=== PATIENT | female | born 1995 | race Caucasian/White ===

== ENCOUNTER → 2017-06-06 | Outpatient (CLI) | payer SELFPAY ==
--- NOTE | 2017-06-06 16:03 | RADIOLOGY REPORT (SQ) ---
EXAM DESCRIPTION: U/S OB 14+ TRNABD 1GES W/O DOP COMPLETED DATE/TIME: 06/06/2017 2:52 pm REASON FOR STUDY: ENCTR FOR SUPERVISION OF OTHER NORMAL SECOND TRIMESTER (Z34.82) Z34.82 ENCOUNTER FOR SUPRVSN OF NORMAL , SECOND TRI COMPARISON: No previous this TECHNIQUE: Static and Dynamic grayscale imaging performed of gravid uterus using transabdominal appr oach. Additional selected color Doppler and spectral images recorded. All stored on PACS. LIMITATIONS: None. FINDINGS: EGA: 28 weeks 4 days REFUGIO: 08/25/2017 EFW: 1,224 grams PERCENTILE: 42nd percentile CLAUDIA: 9.3 cm PLACENTA: Posterior grade 1 PRESENTATION: Cephalic. ANATOMY: HEART RATE: 163 beats per minute. FOUR CHAMBER HEART: Visualized. THREE VESSEL CORD: No, 2 vessel cord CORD INSERTION: Visualized. KIDNEYS AND BLADDER: Visualized. Appear normal. STOMACH: Visualized. Appears normal. SPINE: Normal as visualized. BRAIN AND LATERAL VENTRICLES: Limited visualization OTHER: No other significant finding. MATERNAL ADNEXA: Maternal ovaries not visualized. CERVICAL LENGTH: 4.1 cm Closed. OTHER: No other significant finding. IMPRESSION: LIVING INTRAUTERINE . ESTIMATED GESTATIONAL AGE 28 weeks 4 days 2 vessel cord Trimester of : Third trimester - 28 weeks to delivery. TECHNICAL DOCUMENTATION: JOB ID: [id number] [employer]- All Rights Reserved
== END ==
LOC: RAD 13:31
PROVIDERS: ATTEND Nurse Practitioner Women's Health
DX: Z34.82 Encounter for supervision of other normal pregnancy, second trimester (principal)
CPT/HCPCS: 76805

== ENCOUNTER 2017-07-24 05:06 | Outpatient (CLI) | payer MEDICAID ==
--- NOTE | 2017-07-24 06:01 | Non Stress Test Report ---
Non Stress Test Datetime Report Generated by CPN: 07/24/2017 06:01 DEMOGRAPHIC Test Number: 1 EGA NST: 35.5 INDICATION Indication for Study: Ordered by Provider VITAL SIGNS Temperature - NST: 98.4 Pulse - NST: 80 RESP - NST: 14 NBPSYS NST: 108 NBPDIA NST: 60 URINE RESULTS Urine Protein, NST: Negative Urine Ketones - NST: Negative Urine Glucose - NST: Negative Urine Blood - NST: Negative MONITORING Monitor Explained: Monitor Explained; Test Explained; Patient Verbalized Understanding Time on Monitor: 07/24/2017 05:22 Time off Monitor: 07/24/2017 05:45 NST Duration: 23 NST INTERVENTIONS NST Interventions: PO Hydration Physician Notified NST: Dr. Pitt BABY A: [id number] BABY A Movement : Present Contraction Frequency : x1 FHR Baseline : 135 Accelerations : 15X15 Decelerations : None Variability : Moderate 6-25bpm NST Review: Meets Criteria for Reactive NST NST Review and Verified By : B. Ring RN NST Results: Reactive NST REPORT Report Trigger: Send Report
[2017-07-24 06:25] LABS: APPEARANCE,URINE CLEAR; BILIRUBIN,URINE NEGATIVE (NEGATIVE); GLUCOSE, URINE NEGATIVE (NEGATIVE); KETONES,URINE NEGATIVE (NEGATIVE); LEUKOCYTE ESTERASE,URINE NEGATIVE (NEGATIVE); NITRITE,URINE NEGATIVE (NEGATIVE); PROTEIN,URINE NEGATIVE (NEGATIVE); URINE SPECIFIC GRAVITY 1.005; UROBILINOGEN,URINE NEGATIVE mg/dL (<2.0)
[2017-07-24 06:39] LABS: URINE BARBITURATES SCREEN NEGATIVE; URINE METHADONE SCREEN NEGATIVE; URINE OPIATES LOW NEGATIVE; URINE PHENCYCLIDINE SCREEN NEGATIVE
[2017-07-24 06:40] LABS: RBC,URINE RARE /HPF; WBC,URINE RARE /HPF
[2017-07-24 06:41] LABS: BACTERIA,URINE 1+ /HPF
== END 2017-07-24 05:53 | disposition home or self-care (01) ==
LOC: LC 05:06
PROVIDERS: ATTEND Student in an Organized Health Care Education/Training Program
PROC: 4A1HXCZ Monitoring of Products of Conception, Cardiac Rate, External Approach (ICD-10-PCS; principal; 2017-07-24)
DX: O26.893 Other specified pregnancy related conditions, third trimester (principal); R10.2 Pelvic and perineal pain; R20.0 Anesthesia of skin; R51 Headache; Z3A.35 35 weeks gestation of pregnancy
CPT/HCPCS: 59025; 80307; 81001

== ENCOUNTER 2017-07-24 06:01 | Emergency (ER) | payer MEDICAID ==
[2017-07-24 06:09] VITALS: BP 118/65
== END 2017-07-24 06:20 | disposition left against medical advice (07) ==
LOC: ER 06:01
DX: Z53.21 Procedure and treatment not carried out due to patient leaving prior to being seen by health care provider (principal)

== ENCOUNTER 2017-08-11 18:26 | Outpatient (CLI) | payer MEDICAID ==
[2017-08-11 20:15] LABS: APPEARANCE,URINE SLIGHTLY-CLOUDY; BILIRUBIN,URINE NEGATIVE (NEGATIVE); GLUCOSE, URINE NEGATIVE (NEGATIVE); KETONES,URINE 20 mg/dL (NEGATIVE); LEUKOCYTE ESTERASE,URINE NEGATIVE (NEGATIVE); NITRITE,URINE NEGATIVE (NEGATIVE); PROTEIN,URINE 30 mg/dL (NEGATIVE); URINE SPECIFIC GRAVITY 1.019
[2017-08-11 20:46] LABS: URINE BARBITURATES SCREEN NEGATIVE; URINE METHADONE SCREEN NEGATIVE; URINE OPIATES LOW NEGATIVE; URINE PHENCYCLIDINE SCREEN NEGATIVE
== END 2017-08-11 21:01 | disposition home or self-care (01) ==
LOC: LC 18:26
PROVIDERS: ATTEND Obstetrics & Gynecology
PROC: 4A1HXCZ Monitoring of Products of Conception, Cardiac Rate, External Approach (ICD-10-PCS; principal; 2017-08-11)
DX: O47.1 False labor at or after 37 completed weeks of gestation (principal); Z3A.38 38 weeks gestation of pregnancy
CPT/HCPCS: 80307; 81005; 87086

== ENCOUNTER 2018-01-30 06:30 | Emergency (ER) | payer MEDICAID ==
[2018-01-30 08:02] LABS: APPEARANCE,URINE SLIGHTLY-CLOUDY; BILIRUBIN,URINE NEGATIVE (NEGATIVE); COLOR,URINE STRAW; GLUCOSE, URINE NEGATIVE (NEGATIVE); KETONES,URINE NEGATIVE (NEGATIVE); LEUKOCYTE ESTERASE,URINE LARGE (NEGATIVE); NITRITE,URINE NEGATIVE (NEGATIVE); PROTEIN,URINE NEGATIVE (NEGATIVE); URINE SPECIFIC GRAVITY 1.006; UROBILINOGEN,URINE NEGATIVE mg/dL (<2.0)
--- NOTE | 2018-01-30 08:17 | ER Document Report ---
ED GI/ - General Chief Complaint: Urinary Problem Stated Complaint: POSSIBLE UTI Time Seen by Provider: 01/30/18 07:38 Mode of Arrival: Ambulatory Information source: Patient Notes: Patient is a 22-year-old female who presents to the ER today for burning with urination 3 days. Patient denies any belly pain or back pain, fevers or chills at home. Patient states that she came in today because she saw blood in her urine this morning. TRAVEL OUTSIDE OF THE [place] IN LAST 30 DAYS: No - Related Data Allergies/Adverse Reactions: acetaminophen [From Vicodin] Adverse Reaction (Verified 07/24/17 06:02) hydrocodone bitartrate [From Vicodin] Adverse Reaction (Verified 07/24/17 06:02) ketorolac tromethamine [From Toradol] Adverse Reaction (Verified 07/24/17 06:02) monostat Allergy (Uncoded 01/30/18 06:33) Past Medical History - General Information source: Patient - Social History Smoking Status: Never Smoker Family History: Reviewed & Not Pertinent - Past Medical History Cardiac Medical History: Denies: Hx Heart Attack, Hx Hypertension Pulmonary Medical History: Denies: Hx Asthma, Hx Bronchitis, Hx COPD, Hx Pneumonia Neurological Medical History: Denies: Hx Seizures Renal/ Medical History: Denies: Hx Peritoneal Dialysis Musculoskeltal Medical History: Denies Hx Arthritis Infectious Medical History: Reports: Hx MRSA Past Surgical History: Reports: Hx Section, Hx Herniorrhaphy - Immunizations Immunizations up to date: Yes Hx Diphtheria, Pertussis, Tetanus Vaccination: Yes Review of Systems - Review of Systems Constitutional: No symptoms reported EENT: No symptoms reported Cardiovascular: No symptoms reported Respiratory: No symptoms reported Gastrointestinal: No symptoms reported Genitourinary: See HPI Female Genitourinary: No symptoms reported Musculoskeletal: No symptoms reported Skin: No symptoms reported Hematologic/Lymphatic: No symptoms reported Neurological/Psychological: No symptoms reported Physical Exam - Vital signs Vitals: Temp Pulse Resp BP Pulse Ox 97.7 F 67 18 126/79 H 99 01/30/18 06:35 01/30/18 06:35 01/30/18 06:35 01/30/18 06:35 01/30/18 06:35 - Notes Notes: PHYSICAL EXAMINATION: GENERAL: Well-appearing and in no acute distress. HEAD: Atraumatic, normocephalic. EYES: Pupils equal round and reactive to light, extraocular movements intact, sclera anicteric, conjunctiva are normal. NECK: Normal range of motion, supple without lymphadenopathy LUNGS: CTAB and equal. No wheezes rales or rhonchi. HEART: Regular rate and rhythm without murmurs ABDOMEN: Soft, suprapubic tenderness. No guarding, no rebound BACK: no vertebral tenderness, normal ROM GI/: no CVA tenderness EXTREMITIES: Normal range of motion, no pitting edema. No cyanosis. NEUROLOGICAL: Cranial nerves grossly intact. Normal sensory/motor exams. PSYCH: Normal mood, normal affect. SKIN: Warm, Dry, normal turgor, no rashes or lesions noted Course - Re-evaluation Re-evalutation: 01/30/18 09:44 Patient positive for leukocytes with 105 white blood cells on urine and blood in the urinalysis. Patient started on Keflex, given Pyridium prescription. 01/30/18 09:44 negative today. - Vital Signs Vital signs: Temp Pulse Resp BP Pulse Ox 97.7 F 67 18 126/79 H 99 01/30/18 06:35 01/30/18 06:35 01/30/18 06:35 01/30/18 06:35 01/30/18 06:35 - Laboratory Laboratory results interpreted by me: 01/30/18 07:45 Urine Blood MODERATE H Ur Leukocyte Esterase LARGE H Discharge - Discharge Clinical Impression: UTI (urinary tract infection) Qualifiers: Urinary tract infection type: site unspecified Hematuria presence: with hematuria Qualified Code(s): N39.0 - Urinary tract infection, site not specified Condition: Stable Disposition: HOME, SELF-CARE Instructions: Cephalexin ([facility]), Urinary Tract Infection ([facility]) Additional Instructions: Return immediately for any new or worsening symptoms. Follow up with primary care provider, call tomorrow to make followup appointment. Please drink plenty of water. Prescriptions: Cephalexin Monohydrate [Keflex 500 mg Capsule] 500 mg PO BID 7 Days #14 capsule Phenazopyridine HCl [Pyridium 200 mg Tablet] 200 mg PO TID #15 tablet Forms: Return to Work
[2018-01-30 10:06] VITALS: BP 132/78
== END 2018-01-30 09:20 | disposition home or self-care (01) ==
LOC: ER 06:30
DX: N39.0 Urinary tract infection, site not specified (principal); Z88.6 Allergy status to analgesic agent; Z86.14 Personal history of Methicillin resistant Staphylococcus aureus infection
CPT/HCPCS: 81001; 81025; 99283

== ENCOUNTER 2018-03-12 09:14 | Emergency (ER) | payer MEDICAID ==
[2018-03-12 09:20] VITALS: BP 125/82
--- NOTE | 2018-03-12 09:47 | ER Document Report ---
HPI - HPI Pain Level: 3 Notes: Patient is a 22-year-old female no significant past medical history presents to the ED complaining of a red painful lesion area to her vaginal area x2 days. Patient states that she was told by her boyfriend that he has herpes and that she should get it looked at. Patient denies any previous history of STDs or STI 's. Patient states that she does shave in that area and has been using a dull razor recently. She has not noticed any abscess or purulent discharge. She has no vaginal discharge, odor, or bleeding. She has no other concern of any other STD or STI at this time. No other concerns or complaints. Denies any headache, fever, URI, sore throat, chest pain, palpitations, syncope, cough, shortness of breath, wheeze, dyspnea, abdominal pain, nausea/vomiting/diarrhea, urinary retention, dysuria, hematuria. - ROS Systems Reviewed and Negative: Yes All other systems reviewed and negative - REPRODUCTIVE Reproductive: DENIES: : Past Medical History - Social History Smoking Status: Never Smoker Family History: Reviewed & Not Pertinent - Past Medical History Cardiac Medical History: Denies: Hx Heart Attack, Hx Hypertension Pulmonary Medical History: Denies: Hx Asthma, Hx Bronchitis, Hx COPD, Hx Pneumonia Neurological Medical History: Denies: Hx Seizures Renal/ Medical History: Denies: Hx Peritoneal Dialysis Musculoskeletal Medical History: Denies Hx Arthritis Infectious Medical History: Reports: Hx MRSA Past Surgical History: Reports: Hx Section, Hx Herniorrhaphy - Immunizations Immunizations up to date: Yes Hx Diphtheria, Pertussis, Tetanus Vaccination: Yes Vertical Provider Document - CONSTITUTIONAL Agree With Documented VS: Yes Notes: PHYSICAL EXAMINATION: accompanied by female nurserenetta. GENERAL: Well-appearing, well-nourished and in no acute distress. LUNGS: Breath sounds clear to auscultation bilaterally and equal. No wheezes rales or rhonchi. HEART: Regular rate and rhythm without murmurs, rubs, gallops. ABDOMEN: Soft, nontender, nondistended abdomen. No guarding, no rebound. No masses appreciated. Normal bowel sounds present. No CVA tenderness bilaterally. : pt declined complete pelvic or further std/sti testing. outer exam performed: there are 2-3 small red bumps (0.1cm) on erythemic base noted to the postero-inferior labial area that are minimally tender. No fluctuance, purulence, or vesicles noted. No streaks or induration. Musculoskeletal: FROM to passive/active. Strength 5+/5. Extremities: No cyanosis, clubbing, or edema b/l. Peripheral pulses 2+. Capillary refill less than 3 seconds. NEUROLOGICAL: Normal speech, normal gait. PSYCH: Normal mood, normal affect. SKIN: see above. Warm, Dry, normal turgor, no rashes or lesions noted. - INFECTION CONTROL TRAVEL OUTSIDE OF THE [place] IN LAST 30 DAYS: No Course - Re-evaluation Re-evalutation: 03/12/18 09:59 Patient is an afebrile, well-hydrated, 22-year-old female who presents to the ED with lesions to her inferior labial area, suspect possible herpes. Vitals are acceptable. PE is otherwise unremarkable. Patient declined complete pelvic and STD STI testing. She is tolerating p.o. without difficulties and is nontoxic-appearing. I will be sending her home with prescription for acyclovir. Advised patient that she needs to be monitoring her symptoms and with any return have the fluid tested. Recheck with health department this week. Return to the ED with any worsening/concerning symptoms otherwise as reviewed in discharge. Patient is in agreement. - Vital Signs Vital signs: Temp Pulse Resp BP Pulse Ox 98.6 F 78 18 125/82 99 03/12/18 09:18 03/12/18 09:18 03/12/18 09:18 03/12/18 09:18 03/12/18 09:18 Discharge - Discharge Clinical Impression: Lesion of labia Condition: Stable Disposition: HOME, SELF-CARE Additional Instructions: Maintain fluids Proper hygenic technique Keep the skin clean Safe sexual practices with condoms everytime Tylenol/ibuprofen as needed Check in with the health department this week for further testing* F/u with your PCM in 3-5 days for a recheck Return to the ED with any development of CARLSON/fever, trouble with vision, eye redness, worsening pain, urethral discharge, urinary retention, blood in the urine, flank pain, abdominal pain, n/v, Chest Pain, shortness of breath, joint pains, trouble breathing, or any other worsening/concerning symptoms as needed otherwise. Prescriptions: Acyclovir [Acyclovir 400 mg Tablet] 400 mg PO TID #21 tablet Referrals: HEALTH DEPT,[facility] [NO LOCAL MD] - Follow up in 3-5 days
== END 2018-03-12 10:07 | disposition home or self-care (01) ==
LOC: ER 09:14
DX: R10.2 Pelvic and perineal pain (principal); Z20.2 Contact with and (suspected) exposure to infections with a predominantly sexual mode of transmission; Z86.14 Personal history of Methicillin resistant Staphylococcus aureus infection
CPT/HCPCS: 99283

== ENCOUNTER 2018-05-30 08:09 | Emergency (ER) | payer MEDICAID ==
[2018-05-30 08:59] LABS: APPEARANCE,URINE CLEAR; BILIRUBIN,URINE NEGATIVE (NEGATIVE); COLOR,URINE STRAW; GLUCOSE, URINE NEGATIVE (NEGATIVE); KETONES,URINE NEGATIVE (NEGATIVE); LEUKOCYTE ESTERASE,URINE NEGATIVE (NEGATIVE); NITRITE,URINE NEGATIVE (NEGATIVE); PROTEIN,URINE NEGATIVE (NEGATIVE); UROBILINOGEN,URINE NEGATIVE mg/dL (<2.0)
[2018-05-30 09:00] LABS: URINE SPECIFIC GRAVITY 1.009
[2018-05-30 10:00] LABS: EPITHELIALS (WET MOUNT) 3+ EPITHELIALS SEEN; T.VAGINALIS (WET MOUNT) NO TRICHOMONAS SEEN; WBCS (WET MOUNT) NO WBCS SEEN; YEAST (WET MOUNT) NO YEAST SEEN
[2018-05-30 10:22] LABS: CHLAM PCR NOT DETECTED (NOT DETECT); GON PCR NOT DETECTED (NOT DETECT)
[2018-05-30 10:35] VITALS: BP 113/81
--- NOTE | 2018-05-30 11:15 | ER Document Report ---
ED GI/ - General Chief Complaint: Vaginal Discharge Stated Complaint: STD CHECK Time Seen by Provider: 05/30/18 08:58 Mode of Arrival: Ambulatory Information source: Patient Notes: Patient is a 23-year-old female comes emergency room requesting STD check. When asked why patient states that she has been having weird symptoms for the past 2 weeks. She is been having random cramping and pain with with intercourse she is also had a smelly discharge she states it is thick white discharge. She also states she has been itching in the vaginal area. Denies any use of any antibiotics recently no other changes in her perfumes or soaps. She states she is monogamous with the same person but there are new events that have transpired which she will not inform us of. Her last menstrual period was 15 May and she has had a tubal ligation in the past. TRAVEL OUTSIDE OF THE [place] IN LAST 30 DAYS: No - HPI Patient complains to provider of: Pelvic pain. No: Dysuria, Flank pain, Onset: Other - 2 weeks ago Timing/Duration: Constant, Waxing and waning Quality of pain: No pain Severity at maximum: Mild Severity in ED: Mild Pain Level: 0 Location: Suprapubic Vaginal bleeding (Compared to normal period): None LMP: 20. Seventh Sexual history: Active, Unprotected intercourse Associated symptoms: Vaginal discharge Exacerbated by: Denies Relieved by: Denies Similar symptoms previously: No Recently seen / treated by doctor: No - Related Data Allergies/Adverse Reactions: acetaminophen [From Vicodin] Adverse Reaction (Verified 05/30/18 08:11) hydrocodone bitartrate [From Vicodin] Adverse Reaction (Verified 05/30/18 08:11) ketorolac tromethamine [From Toradol] Adverse Reaction (Verified 05/30/18 08:11) monostat Allergy (Uncoded 05/30/18 08:11) Past Medical History - General Information source: Patient - Social History Smoking Status: Never Smoker Cigarette use (# per day): No Chew tobacco use (# tins/day): No Smoking Education Provided: No Frequency of alcohol use: None Drug Abuse: None Family History: Reviewed & Not Pertinent Patient has suicidal ideation: No Patient has homicidal ideation: No - Past Medical History Cardiac Medical History: Denies: Hx Heart Attack, Hx Hypertension Pulmonary Medical History: Denies: Hx Asthma, Hx Bronchitis, Hx COPD, Hx Pneumonia Neurological Medical History: Denies: Hx Seizures Renal/ Medical History: Denies: Hx Peritoneal Dialysis Musculoskeletal Medical History: Denies Hx Arthritis Infectious Medical History: Reports: Hx MRSA Past Surgical History: Reports: Hx Section, Hx Herniorrhaphy, Hx Tubal Ligation - Immunizations Immunizations up to date: Yes Hx Diphtheria, Pertussis, Tetanus Vaccination: Yes Review of Systems - Review of Systems Constitutional: No symptoms reported EENT: No symptoms reported Cardiovascular: No symptoms reported Respiratory: No symptoms reported Gastrointestinal: No symptoms reported Genitourinary: Discharge Female Genitourinary: No symptoms reported Musculoskeletal: No symptoms reported Skin: No symptoms reported Hematologic/Lymphatic: No symptoms reported Neurological/Psychological: No symptoms reported -: Yes All other systems reviewed and negative Physical Exam - Vital signs Vitals: Temp Pulse Resp BP Pulse Ox 98.6 F 84 14 126/65 H 99 05/30/18 08:13 05/30/18 08:13 05/30/18 08:13 05/30/18 08:13 05/30/18 08:13 Interpretation: Normal - Notes Notes: Patient is a well-nourished well-developed 22-year-old female who is in no apparent distress. - General General appearance: Alert - HEENT Head: Normocephalic, Atraumatic Eyes: Normal - Respiratory Respiratory status: No respiratory distress Chest status: Nontender Breath sounds: Normal. No: Rales, Rhonchi, Stridor, Wheezing Chest palpation: Normal - Cardiovascular Rhythm: Regular Heart sounds: Normal auscultation Murmur: No - Abdominal Inspection: Normal Distension: No distension Bowel sounds: Normal Tenderness: Nontender Organomegaly: No organomegaly - Genitourinary External exam: Normal, Other - Pelvic examination shows normal appearing exterior genitalia. There is no erythema or signs of yeast infection. Further speculum exam shows normal vaginal moist dee. The cervix is deep and anteverted. There is no cervical motion tenderness. There is a thick white discharge surrounding the office but no other place. [id number] nonadhesive. The cervix is normal in appearance the office is closed there is no sign of any abnormalities. Bimanual was also negative for any CMT. There was no pain or discomfort with palpation of the ovaries. Speculum exam: Normal, Cervix closed, Vaginal discharge Bimanuel exam: Normal. No: Cervical motion tender - Back Back: Normal - Neurological Neuro grossly intact: Yes Cognition: Normal Orientation: AAOx4 Maria C Coma Scale Eye Opening: Spontaneous [place] Coma Scale Verbal: Oriented Maria C Coma Scale Motor: Obeys Commands [place] Coma Scale Total: 15 Speech: Normal - Skin Skin Temperature: Warm Skin Moisture: Dry Skin Color: Normal Course - Re-evaluation Re-evalutation: 05/30/18 11:18 Patient was hoping that we would find some abnormality in her STD workup. Her GC was negative this was by urine her urine was clean. The pelvic exam showed a white discharge but it had no smell to it and it was not adherent appears to be a normal variant. The wet prep was also negative for any type of clue cells. So at this time would send patient home with basically a good or negative I should say STD exam - Vital Signs Vital signs: Temp Pulse Resp BP Pulse Ox 98.8 F 84 16 113/81 100 05/30/18 10:33 05/30/18 08:13 05/30/18 10:33 05/30/18 10:33 05/30/18 10:33 Discharge - Discharge Clinical Impression: Pelvic pain, Screening examination for STD (sexually transmitted disease) Condition: Stable Disposition: HOME, SELF-CARE Instructions: Pelvic Pain ([facility]) Additional Instructions: At this time we have found no abnormalities in your STD workup. I highly recommend that she establish with a [facility] and discussed with them the matters and possibly get a Pap smear. Again we tested for gonorrhea chlamydia and clue cells for bacterial vaginosis we do not test for HIV out of the emergency room. If you are concerned about this you should go to the health department or to your primary care provider for instructions on how to do this. I am giving you the name of the [facility] party demonstrator you may contact your office to see if they can accommodate you. Referrals: FLORA CATALAN, DO [ACTIVE STAFF] - Follow up as needed
== END 2018-05-30 11:32 | disposition home or self-care (01) ==
LOC: ER 08:09 → EEVIPCON 08:09 → ER 11:32
DX: N89.8 Other specified noninflammatory disorders of vagina (principal); R10.2 Pelvic and perineal pain; Z20.2 Contact with and (suspected) exposure to infections with a predominantly sexual mode of transmission; Z88.6 Allergy status to analgesic agent; Z86.14 Personal history of Methicillin resistant Staphylococcus aureus infection; Z98.51 Tubal ligation status
CPT/HCPCS: 81001; 81025; 87210; 87491; 87591; 99283

== ENCOUNTER 2018-07-23 19:33 | Emergency (ER) | payer MEDICAID ==
--- NOTE | 2018-07-23 20:54 | RADIOLOGY REPORT (SQ) ---
EXAM DESCRIPTION: HAND RIGHT 3 VIEWS COMPLETED DATE/TIME: 07/23/2018 8:28 pm REASON FOR STUDY: Punched something-possible broken hand COMPARISON: None. EXAM PARAMETERS: NUMBER OF VIEWS: Three views. TECHNIQUE: AP, lateral and oblique radiographic images acquired of the right hand. LIMITATIONS: None. FINDINGS: MINERALIZATION: Normal. BONES: No acute fracture or dislocation. No worrisome bone lesions. JOINTS: No effusions. SOFT TISSUES: No soft tissue swelling. No foreign body. OTHER: No other significant finding. IMPRESSION: NEGATIVE STUDY OF THE RIGHT HAND. NO RADIOGRAPHIC EVIDENCE OF ACUTE INJURY. TECHNICAL DOCUMENTATION: JOB ID: [id number] [employer]- All Rights Reserved Reading location - IP/workstation name: [email or web address]
--- NOTE | 2018-07-23 22:20 | ER Document Report ---
HPI - HPI Patient complains to provider of: R hand/wrist pain Time Seen by Provider: 07/23/18 21:07 Onset: This morning Onset/Duration: Sudden Quality of pain: Throbbing Pain Level: 4 Associated Symptoms: None Exacerbated by: Movement Relieved by: Remaining still Similar symptoms previously: No Recently seen / treated by doctor: No - ROS ROS below otherwise negative: Yes Systems Reviewed and Negative: Yes All other systems reviewed and negative - REPRODUCTIVE Reproductive: DENIES: : Past Medical History - General Information source: Patient - Social History Smoking Status: Never Smoker Family History: Reviewed & Not Pertinent - Past Medical History Cardiac Medical History: Denies: Hx Heart Attack, Hx Hypertension Pulmonary Medical History: Denies: Hx Asthma, Hx Bronchitis, Hx COPD, Hx Pneumonia Neurological Medical History: Denies: Hx Seizures Renal/ Medical History: Denies: Hx Peritoneal Dialysis Musculoskeletal Medical History: Denies Hx Arthritis Infectious Medical History: Reports: Hx MRSA Past Surgical History: Reports: Hx Section, Hx Herniorrhaphy, Hx Tubal Ligation - Immunizations Immunizations up to date: Yes Hx Diphtheria, Pertussis, Tetanus Vaccination: Yes Vertical Provider Document - CONSTITUTIONAL Agree With Documented VS: Yes Exam Limitations: No Limitations - INFECTION CONTROL TRAVEL OUTSIDE OF THE [place] IN LAST 30 DAYS: No - HEENT HEENT: Atraumatic, Normocephalic - NECK Neck: Normal Inspection, Other - RESPIRATORY Respiratory: Breath Sounds Normal, No Respiratory Distress - CARDIOVASCULAR Cardiovascular: Regular Rate, Regular Rhythm - No edema - MUSCULOSKELETAL/EXTREMETIES Musculoskeletal/Extremeties: Tender - Exquisite tenderness to palpation right fifth metacarpal and pinky finger. Ecchymosis noted over dorsal aspect of fourth and fifth metacarpals. No snuffbox tenderness. Tenderness to palpation right medial wrist. No edema. X Ray shows no evidence of fracture. Sensation intact to light touch. Normal distal neurovascular exam. - NEURO Motor/Sensory: negative: Sensory Deficit Course - Vital Signs Vital signs: Temp Pulse Resp BP Pulse Ox 97.6 F 90 16 124/85 100 07/23/18 19:48 07/23/18 19:48 07/23/18 19:48 07/23/18 19:48 07/23/18 19:48 Discharge - Discharge Clinical Impression: Hand injury Qualifiers: Encounter type: initial encounter Laterality: right Qualified Code(s): S69.91XA - Unspecified injury of right wrist, hand and finger(s), initial encounter Condition: Good Disposition: HOME, SELF-CARE Additional Instructions: You were seen in the emergency department this evening for a right hand injury. No evidence of fracture on x-ray. The pain you are experiencing is most likely due to soft tissue injury and bony bruising. Make sure that you rest your hand you can ice your hand for 20 minutes at a time every couple of hours, keep the splint on it for the next 3-5 days, and if he noticed swelling elevate your right hand above the heart. If you notice that your hand starts to turn blue, becomes numb, or you develop severe pain out of proportion to what you are already experiencing please return to the emergency department. We are giving you information for orthopedics, but please follow-up with a primary doctor. If you do not have a primary doctor he can call the orthopedics clinic tomorrow and set up an appointment for follow-up.
[2018-07-23 23:29] VITALS: BP 127/89
== END 2018-07-23 22:30 | disposition home or self-care (01) ==
LOC: ER 19:33
DX: S69.91XA Unspecified injury of right wrist, hand and finger(s), initial encounter (principal); M25.531 Pain in right wrist; M79.641 Pain in right hand; I10 Essential (primary) hypertension; X58.XXXA Exposure to other specified factors, initial encounter
CPT/HCPCS: 99283; 73130; L3908

== ENCOUNTER 2018-10-01 10:03 | Emergency (ER) | payer SELFPAY ==
[2018-10-01 10:10] VITALS: BP 128/83
--- NOTE | 2018-10-01 10:45 | RADIOLOGY REPORT (SQ) ---
EXAM DESCRIPTION: WRIST RIGHT 3 VIEWS COMPLETED DATE/TIME: 10/01/2018 10:33 am REASON FOR STUDY: rt wrist pain COMPARISON: None. NUMBER OF VIEWS: Four views. TECHNIQUE: AP, lateral, oblique, and scaphoid radiographic images acquired of the right wrist. LIMITATIONS: None. FINDINGS: MINERALIZATION: Normal. BONES: No acute fracture or dislocation. No worrisome bone lesions. Normal alignment. SOFT TISSUES: No soft tissue swelling. No foreign body. OTHER: No other significant finding. IMPRESSION: NEGATIVE STUDY OF THE RIGHT WRIST. NO RADIOGRAPHIC EVIDENCE OF ACUTE INJURY. TECHNICAL DOCUMENTATION: JOB ID: [id number] [employer]- All Rights Reserved Reading location - IP/workstation name: [email or web address]
--- NOTE | 2018-10-01 11:08 | ER Document Report ---
HPI - HPI Time Seen by Provider: 10/01/18 10:21 Pain Level: 3 Notes: Patient is a 23-year-old female with no significant past medical history presents emergency department complaining of right wrist pain status post injury a week ago. Patient states that she was falling and had an injury to her right wrist. It was a fall on outstretched hand injury. Patient states that she has been doing conservative measures for the past week, but does continue to have pain in her wrist and difficulty with range of motion because of the pain. She has not noticed any other bruising. Denies any headache, fever, head injury, neck pain, URI, sore throat, chest pain, palpitations, syncope, cough, shortness of breath, wheeze, dyspnea, abdominal pain, nausea/vomiting/diarrhea, urinary retention, dysuria, hematuria, loss of control of bowel or bladder, numbness/tingling, muscle paralysis/weakness, or rash. - ROS Systems Reviewed and Negative: Yes All other systems reviewed and negative - CONSTITUTIONAL Constitutional: DENIES: Fever, Chills - EENT EENT: DENIES: Sore Throat, Ear Pain, Eye problems - NEURO Neurology: DENIES: Headache, Weakness, Vision blurred, Dizzinesss / Vertigo - CARDIOVASCULAR Cardiovascular: DENIES: Chest pain - RESPIRATORY Respiratory: DENIES: Trouble Breathing, Coughing - GASTROINTESTINAL Gastrointestinal: DENIES: Abdominal Pain, Black / Bloody Stools - URINARY Urinary: DENIES: Dysuria, Urgency, Frequency - REPRODUCTIVE Reproductive: DENIES: : - MUSCULOSKELETAL Musculoskeletal: REPORTS: Extremity pain - right wrist Past Medical History - Social History Smoking Status: Never Smoker Chew tobacco use (# tins/day): No Frequency of alcohol use: None Drug Abuse: None Family History: Reviewed & Not Pertinent Patient has suicidal ideation: No Patient has homicidal ideation: No - Past Medical History Cardiac Medical History: Denies: Hx Heart Attack, Hx Hypertension Pulmonary Medical History: Denies: Hx Asthma, Hx Bronchitis, Hx COPD, Hx Pneumonia Neurological Medical History: Denies: Hx Seizures Renal/ Medical History: Denies: Hx Peritoneal Dialysis Musculoskeletal Medical History: Denies Hx Arthritis Infectious Medical History: Reports: Hx MRSA Past Surgical History: Reports: Hx Abdominal Surgery - ventral hernia repair, Hx Section - x2, Hx Herniorrhaphy, Hx Tubal Ligation - Immunizations Immunizations up to date: Yes Hx Diphtheria, Pertussis, Tetanus Vaccination: Yes Vertical Provider Document - CONSTITUTIONAL Agree With Documented VS: Yes Notes: PHYSICAL EXAMINATION: GENERAL: Well-appearing, well-nourished and in no acute distress. LUNGS: Breath sounds clear to auscultation bilaterally and equal. No wheezes rales or rhonchi. HEART: Regular rate and rhythm without murmurs, rubs, gallops. Musculoskeletal: Rt wrist: No obvious erythema, ecchymosis, swelling, or deformity. + tenderness to the distal radius. No scaphoid tenderness. LROM to active due to pain, FROM to passive. Strength 5+/5. N/V intact distal. Extremities: No cyanosis, clubbing, or edema b/l. Peripheral pulses 2+. Capillary refill less than 3 seconds. NEUROLOGICAL: Normal speech, normal gait. Normal sensory, motor exams PSYCH: Normal mood, normal affect. SKIN: Warm, Dry, normal turgor, no rashes or lesions noted. - INFECTION CONTROL TRAVEL OUTSIDE OF THE [place] IN LAST 30 DAYS: No Course - Re-evaluation Re-evalutation: 10/01/18 11:08 Patient is an afebrile, well-hydrated, 23-year-old female who presents to the ED with rt wrist pain which I suspect to be a sprain versus strain. Vitals are acceptable without any significant tachycardia, tachypnea, or hypoxia. PE is otherwise unremarkable for any neurovascular compromise, obvious tendon/ligament rupture, obvious fracture/dislocation, septic joint. X-ray was unremarkable for any acute pathology. Cock-up provided today. Patient declined any Tylenol or ice. Patient is nontoxic-appearing. No other labs or imaging warranted at this time based on H&P. Conservative measures otherwise for symptoms. Recheck with your PCM in 3-5 days. Consider consult orthopedics. Return to the ED with any worsening/concerning symptoms otherwise as reviewed in discharge. Patient is in agreement. - Vital Signs Vital signs: Temp Pulse Resp BP Pulse Ox 98.4 F 88 16 128/83 H 100 10/01/18 10:08 10/01/18 10:08 10/01/18 10:08 10/01/18 10:10/01/18 10:08 Discharge - Discharge Clinical Impression: Right wrist pain Condition: Stable Disposition: HOME, SELF-CARE Additional Instructions: Rest, Ice, Compression, Elevation Use splint as directed Tylenol/ibuprofen as needed Light stretches daily Strength exercises as able Moist heat and massage may help F/u with your PCP in 3-5 days for a recheck Consider consult(s) with Orthopedics/physical therapy for ongoing/worsening symptoms Return to the ED with any worsening symptoms and/or development of fever, headache, chest pain, palpitations, syncope, shortness of breath, trouble breathing, abdominal pain, n/v/d, muscle weakness/paralysis, numbness/tingling, swelling, redness, or other worsening symptoms that are concerning to you. Forms: Elevated Blood Pressure Referrals: [facility] ([facility]) [Provider Group] - Follow up as needed
== END 2018-10-01 11:15 | disposition home or self-care (01) ==
LOC: ER 10:03
DX: M25.531 Pain in right wrist (principal); W19.XXXA Unspecified fall, initial encounter
CPT/HCPCS: 99283; 73110; L3908

== ENCOUNTER 2018-11-27 18:40 | Emergency (ER) | payer SELFPAY ==
[2018-11-27] MEDS ORDERED: ACETAMINOPHEN 325 MG TABLET PO ONE (21:07)
--- NOTE | 2018-11-27 21:28 | ER Document Report ---
HPI - HPI Patient complains to provider of: Sore throat Time Seen by Provider: 11/27/18 20:28 Pain Level: 3 Context: Patient is otherwise healthy 23-year-old female presents to the emergency department for sore throat and subjective fever for the last 2 days. Patient also admitting to generalized congestion. Patient states she noted a white spot in the right side of her mouth which concerned her which is why she presents to the emergency room. Patient denies any medical history, takes no medications on a daily basis, Allergies include Toradol, Vicodin, last menstrual period 11/12. - EENT EENT: REPORTS: Sore Throat - REPRODUCTIVE Reproductive: DENIES: : Past Medical History - General Information source: Patient - Social History Smoking Status: Unknown if Ever Smoked Family History: Reviewed & Not Pertinent Patient has suicidal ideation: No Patient has homicidal ideation: No - Past Medical History Cardiac Medical History: Denies: Hx Heart Attack, Hx Hypertension Pulmonary Medical History: Denies: Hx Asthma, Hx Bronchitis, Hx COPD, Hx Pneumonia Neurological Medical History: Denies: Hx Seizures Renal/ Medical History: Denies: Hx Peritoneal Dialysis Musculoskeletal Medical History: Denies Hx Arthritis Infectious Medical History: Reports: Hx MRSA Past Surgical History: Reports: Hx Abdominal Surgery - ventral hernia repair, Hx Section - x2, Hx Herniorrhaphy, Hx Tubal Ligation - Immunizations Immunizations up to date: Yes Hx Diphtheria, Pertussis, Tetanus Vaccination: Yes Vertical Provider Document - CONSTITUTIONAL Agree With Documented VS: Yes Notes: GENERAL: Alert, interacts well. No acute distress. HEAD: Normocephalic, atraumatic. EYES: Pupils equal, round, and reactive to light. Extraocular movements intact. ENT: Oral mucosa moist, tongue midline. Nares patent, TM's intact, nonerythemato us, nonbulging bilaterally. Pharynx minorly erythematous, it appears to be an aphthous ulcer noted to the mucous membranes on the right side of the patient's mouth. NECK: Full range of motion. Supple. Trachea midline. No lymphadenopathy appreciated LUNGS: Clear to auscultation bilaterally, no wheezes, rales, or rhonchi. No respiratory distress. HEART: Regular rate and rhythm. No murmur ABDOMEN: Soft, non-tender. Non-distended. Bowel sounds present in all 4 quadrants. EXTREMITIES: Moves all 4 extremities spontaneously. No edema, normal radial and dorsalis pedis pulses bilaterally. No cyanosis. BACK: no cervical, thoracic, lumbar midline tenderness. No saddle anesthesia, normal distal neurovascular exam. NEUROLOGICAL: Alert and oriented x3. Normal speech. cranial nerves II through XII grossly intact. PSYCH: Normal affect, normal mood. SKIN: Warm, dry, normal turgor. No rashes or lesions noted. - INFECTION CONTROL TRAVEL OUTSIDE OF THE [place] IN LAST 30 DAYS: No Course - Re-evaluation Re-evalutation: 11/27/18 21:26 Patient's rapid strep test was negative. Patient's physical exam is consistent with an aphthous ulcer, viral diagnosis. Discussed with patient symptomatic treatments and close follow-up with primary care provider. Patient stable for discharge. - Vital Signs Vital signs: Temp Pulse Resp BP Pulse Ox 98.4 F 98 16 121/72 97 11/27/18 19:36 11/27/18 19:36 11/27/18 19:36 11/27/18 19:36 11/27/18 19:36 Discharge - Discharge Clinical Impression: Aphthous ulcer, Sore throat Condition: Stable Disposition: HOME, SELF-CARE Instructions: Sore Throat ([facility]) Additional Instructions: As we discussed you have been seen and treated in the emergency department for an Apthous ulcer. These are typically caused by viral infections. Patient should continue to take [id number] Tylenol, use [id number] Cepacol throat lozenges. Please also make an appointment with your primary care provider for follow-up in the next 24 to 48 hours. Please return to the emergency room should you have any other concerning symptoms. Forms: Return to Work
[2018-11-27 21:33] VITALS: BP 121/80
== END 2018-11-27 21:33 | disposition home or self-care (01) ==
LOC: ER 18:40
DX: K12.0 Recurrent oral aphthae (principal); J02.9 Acute pharyngitis, unspecified; R68.89 Other general symptoms and signs; Z86.14 Personal history of Methicillin resistant Staphylococcus aureus infection; Z98.51 Tubal ligation status
CPT/HCPCS: 87070; 87880; 99283

== ENCOUNTER 2019-05-01 13:07 | Emergency (ER) | payer SELFPAY ==
[2019-05-01] MEDS ORDERED: DIPH/PERTUSS(ACELL)/TETANUS VAC/PF 0.5 ML SYR (>=10YO) IM ONE (14:22)
[2019-05-01] MEDS ORDERED: MUPIROCIN 2% OINTMENT 22 GM TP ONE (14:23)
[2019-05-01] MEDS ORDERED: OXYCODONE-ACETAMINOPHEN 5-325 MG TABLET PO ONE (14:24)
--- NOTE | 2019-05-01 14:29 | ER Document Report ---
HPI - HPI Patient complains to provider of: Hand burn Time Seen by Provider: 05/01/19 14:14 Onset: This afternoon - noon Onset/Duration: Persistent Quality of pain: Burning Pain Level: 5 Context: Patient states that she grabbed her currently and this afternoon burning her hand. Patient reports mild burn to the left third fourth and fifth fingers as well as the palmar surface. Patient is right-hand dominant. Associated Symptoms: Other - Left hand pain with burning Exacerbated by: Movement Relieved by: Denies Similar symptoms previously: No Recently seen / treated by doctor: No - ROS ROS below otherwise negative: Yes Systems Reviewed and Negative: Yes All other systems reviewed and negative - CONSTITUTIONAL Constitutional: DENIES: Fever, Chills - GASTROINTESTINAL Gastrointestinal: DENIES: Nausea - REPRODUCTIVE Reproductive: DENIES: : - MUSCULOSKELETAL Musculoskeletal: REPORTS: Extremity pain - DERM Skin Color: Erythema Skin Problems: Burn Past Medical History - General Information source: Patient - Social History Smoking Status: Never Smoker Frequency of alcohol use: None Drug Abuse: None Occupation: underwriting intern Lives with: Family Family History: Reviewed & Not Pertinent Patient has suicidal ideation: No Patient has homicidal ideation: No - Medical History Medical History: Negative - Past Medical History Cardiac Medical History: Neurological Medical History: Denies: Hx Seizures Renal/ Medical History: Denies: Hx Peritoneal Dialysis Musculoskeletal Medical History: Denies Hx Arthritis Infectious Medical History: Reports: Hx MRSA Past Surgical History: Reports: Hx Abdominal Surgery - ventral hernia repair, Hx Section - x2, Hx Herniorrhaphy, Hx Tubal Ligation - Immunizations Immunizations up to date: Yes Hx Diphtheria, Pertussis, Tetanus Vaccination: Yes Vertical Provider Document - CONSTITUTIONAL Agree With Documented VS: Yes Exam Limitations: No Limitations General Appearance: WD/WN, No Apparent Distress - INFECTION CONTROL TRAVEL OUTSIDE OF THE [place] IN LAST 30 DAYS: No - HEENT HEENT: Atraumatic, Normocephalic - NECK Neck: Normal Inspection - RESPIRATORY Respiratory: No Respiratory Distress - CARDIOVASCULAR Pulses: Normal: Radial - MUSCULOSKELETAL/EXTREMETIES Musculoskeletal/Extremeties: BUTCH YEAGER - NEURO Level of Consciousness: Awake, Alert, Appropriate Motor/Sensory: No Motor Deficit - DERM Integumentary: Warm, Dry Notes: Patient with a superficial burn to palmar surface of left third fourth and fifth fingertips. No blistering noted. Patient with burn to left hand thenar eminence that appears superficial to partial thickness. No blistering noted. Course - Vital Signs Vital signs: Temp Pulse Resp BP Pulse Ox 98.2 F 80 18 128/71 H 99 05/01/19 13:15 05/01/19 13:15 05/01/19 13:15 05/01/19 13:15 05/01/19 13:15 Discharge - Discharge Clinical Impression: Burn Condition: Stable Disposition: HOME, SELF-CARE Instructions: Gong ([facility]), Soap Cleansing ([facility]), Tetanus Immunization Given ([facility]) Additional Instructions: Return immediately for any new or worsening symptoms Followup with your primary care provider, call tomorrow to make a followup appointment Keep wound covered as it continues to heal Prescriptions: Mupirocin [Bactroban 2% Ointment 22 gm] 1 applic TP BID #22 gm Oxycodone HCl/Acetaminophen [Percocet 5-325 mg Tablet] 1 tab PO ASDIR PRN #6 tablet PRN Reason: Forms: Return to Work Referrals: [facility] [Provider Group] - Follow up as needed [facility] [Provider Group] - Follow up as needed
[2019-05-01 15:17] VITALS: BP 114/76
== END 2019-05-01 15:16 | disposition home or self-care (01) ==
LOC: ER 13:07
DX: T23.002A Burn of unspecified degree of left hand, unspecified site, initial encounter (principal); X08.8XXA Exposure to other specified smoke, fire and flames, initial encounter
CPT/HCPCS: 99283; 90471; 90715; J3490

== ENCOUNTER 2020-05-26 15:53 | Emergency (ER) | payer SELFPAY ==
--- NOTE | 2020-05-26 16:22 | ER Document Report ---
ED Medical Screen (RME) - General Chief Complaint: Headache Stated Complaint: VISON LOSE/MIGRAINE/NAUSEA/SHAKEY Time Seen by Provider: 05/26/20 16:11 Mode of Arrival: Ambulatory Information source: Patient Notes: 24-year-old female presented to ED for complaint of complete loss of vision in the left eye around noon. She states everything went white she became very shaky shaky with a severe headache. She states her vision has improved it is now blotchy and very blurry. She states she still has a severe headache. She does have a history of mitral valve prolapse pots disease and orthostatic intolerance. I did consult Dr. Rubio. He said to work it up as a stroke. I have ordered the stroke protocol at this time. I have greeted and performed a rapid initial assessment of this patient. A comprehensive ED assessment and evaluation of the patient, analysis of test results and completion of medical decision making process will be conducted by an additional ED providers. TRAVEL OUTSIDE OF THE [place] IN LAST 30 DAYS: No - Related Data Allergies/Adverse Reactions: hydrocodone bitartrate [From Vicodin] Adverse Reaction (Verified 05/26/20 16:09) ketorolac tromethamine [From Toradol] Adverse Reaction (Verified 05/26/20 16:09) monostat Allergy (Uncoded 05/26/20 16:09) Home Medications: no home meds Past Medical History - Social History Chew tobacco use (# tins/day): No Frequency of alcohol use: Occasional Drug Abuse: None - Past Medical History Cardiac Medical History: Denies: Hx Heart Attack, Hx Hypertension Pulmonary Medical History: Denies: Hx Asthma, Hx Bronchitis, Hx COPD, Hx Pneumonia Neurological Medical History: Denies: Hx Seizures Renal/ Medical History: Denies: Hx Peritoneal Dialysis Musculoskeltal Medical History: Denies Hx Arthritis Infectious Medical History: Reports: Hx MRSA Past Surgical History: Reports: Hx Abdominal Surgery - ventral hernia repair, Hx Section - x2, Hx Herniorrhaphy, Hx Tubal Ligation - Immunizations Immunizations up to date: Yes Hx Diphtheria, Pertussis, Tetanus Vaccination: Yes Physical Exam - Vital signs Vitals: Temp Pulse Resp BP Pulse Ox 97.8 F 84 16 142/80 H 98 05/26/20 15:59 05/26/20 15:59 05/26/20 15:59 05/26/20 15:59 05/26/20 15:59 Course - Vital Signs Vital signs: Temp Pulse Resp BP Pulse Ox 97.8 F 84 16 142/80 H 98 05/26/20 15:59 05/26/20 15:59 05/26/20 15:59 05/26/20 15:59 05/26/20 15:59
--- NOTE | 2020-05-26 16:47 | RADIOLOGY REPORT (SQ) ---
EXAM DESCRIPTION: CT HEAD WITHOUT IMAGES COMPLETED DATE/TIME: 05/26/2020 4:35 pm REASON FOR STUDY: Loss vision left eye severe headache shaky nauseat COMPARISON: 08/04/2013 TECHNIQUE: Axial images acquired through the brain without intravenous contrast. Images reviewed wit h bone, brain and subdural windows. Images stored on PACS. All CT scanners at this facility use dose modulation, iterative reconstruction, and/or weight based d osing when appropriate to reduce radiation dose to as low as reasonably achievable (ALARA). [facility]: Dose Right [facility]: CareDose [facility]: Dose Right [facility]: Teradose 4D [facility]: Smart Experience Headphones RADIATION DOSE: CT Rad equipment meets quality standard of care and radiation dose reduction techniq ues were employed. CTDIvol: 53.2 mGy. DLP: 964 mGy-cm.. LIMITATIONS: None. FINDINGS: VENTRICLES: Normal size and contour. CEREBRUM: No masses. No hemorrhage. No midline shift. Age appropriate white matter. No evidence for a cute infarction. CEREBELLUM: No masses. No hemorrhage. No alteration of density. No evidence for acute infarction. EXTRA-AXIAL SPACES: No fluid collections. ORBITS AND GLOBE: No intra- or extraconal masses. Normal contour of globe without masses. CALVARIUM: No fracture. PARANASAL SINUSES: No fluid or mucosal thickening. SOFT TISSUES: No mass or hematoma. OTHER: No other significant finding. IMPRESSION: NO ACUTE INTRACRANIAL FINDINGS. EVIDENCE OF ACUTE STROKE: NO. TECHNICAL DOCUMENTATION: JOB ID: [id number] Quality ID # [id number]: Final reports with documentation of one or more dose reduction techniques (e.g., Au tomated exposure control, adjustment of the mA and/or kV according to patient size, use of iterative reconstruction technique) 2010 [employer]- All Rights Reserved Reading location - IP/workstation name: [email or web address]
--- NOTE | 2020-05-26 16:47 | RADIOLOGY REPORT (SQ) ---
EXAM DESCRIPTION: CHEST SINGLE VIEW IMAGES COMPLETED DATE/TIME: 05/26/2020 4:32 pm REASON FOR STUDY: Loss vision left eye severe headache shaky nauseat COMPARISON: 03/24/2010 EXAM PARAMETERS: NUMBER OF VIEWS: One view. TECHNIQUE: Single frontal radiographic view of the chest acquired. RADIATION DOSE: NA LIMITATIONS: None. FINDINGS: LUNGS AND PLEURA: No opacities, masses or pneumothorax. No pleural effusion. MEDIASTINUM AND HILAR STRUCTURES: No masses. Contour normal. HEART AND VASCULAR STRUCTURES: Heart normal in size. Normal vasculature. BONES: No acute findings. HARDWARE: None in the chest. OTHER: No other significant finding. IMPRESSION: NO ACUTE RADIOGRAPHIC FINDING IN THE CHEST. TECHNICAL DOCUMENTATION: JOB ID: [id number] 2010 [employer]- All Rights Reserved Reading location - IP/workstation name: [email or web address]
[2020-05-26] MEDS ORDERED: NORMAL SALINE 1000 ML 1,000 ML IV ONE (17:22)
[2020-05-26] MEDS ORDERED: PROCHLORPERAZINE EDISYLATE INJ 10 MG/2 ML VIAL IV ONE (17:23)
[2020-05-26] MEDS ORDERED: DIPHENHYDRAMINE HCL 50 MG/ML VIAL IV ONE (17:23)
--- NOTE | 2020-05-26 17:29 | ER Document Report ---
ED General - General Chief Complaint: Headache Stated Complaint: VISON LOSE/MIGRAINE/NAUSEA/SHAKEY Time Seen by Provider: 05/26/20 16:11 Mode of Arrival: Ambulatory TRAVEL OUTSIDE OF THE [place] 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 She has been nauseated without vomiting. She denies any focal sensory or motor symptoms. Pain was about 8/10 intensity earlier. It is currently 5/10. She has not taken any medication today. Her vision is about 50% improved. Currently menstruating. - Related Data Allergies/Adverse Reactions: hydrocodone bitartrate [From Vicodin] Adverse Reaction (Verified 05/26/20 16:09) ketorolac tromethamine [From Toradol] Adverse Reaction (Verified 05/26/20 16:09) monostat Allergy (Uncoded 05/26/20 16:09) Home Medications: no home meds Past Medical History - General Information source: Patient - Social History Smoking Status: Never Smoker Chew tobacco use (# tins/day): No Frequency of alcohol use: Occasional Drug Abuse: None Lives with: Family Family History: Reviewed & Not Pertinent Patient has homicidal ideation: No - Past Medical History Cardiac Medical History: Reports: None Denies: Hx Heart Attack, Hx Hypertension Pulmonary Medical History: Denies: Hx Asthma, Hx Bronchitis, Hx COPD, Hx Pneumonia Neurological Medical History: Reports: Hx Migraine. Denies: Hx Seizures Endocrine Medical History: Denies: Hx Diabetes Mellitus Type 1, Hx Diabetes Mellitus Type 2 Renal/ Medical History: Denies: Hx Peritoneal Dialysis Musculoskeletal Medical History: Denies Hx Arthritis Infectious Medical History: Reports: Hx MRSA Past Surgical History: Reports: Hx Abdominal Surgery - ventral hernia repair, Hx Section - x2, Hx Herniorrhaphy, Hx Tubal Ligation - Immunizations Immunizations up to date: Yes Hx Diphtheria, Pertussis, Tetanus Vaccination: Yes Review of Systems - Review of Systems Notes: Constitutional: Negative for fever. HENT: Negative for sore throat. Eyes: As per HPI. Wears glasses. Cardiovascular: Negative for chest pain. Respiratory: Negative for shortness of breath. Gastrointestinal: Negative for abdominal pain, vomiting or diarrhea. Genitourinary: Negative for dysuria. Musculoskeletal: Negative for back pain. Skin: Negative for rash. Neurological: As per HPI. 10 point ROS negative except as marked above and in HPI. Physical Exam - Vital signs Vitals: Temp Pulse Resp BP Pulse Ox 97.8 F 84 16 142/80 H 98 05/26/20 15:59 05/26/20 15:59 05/26/20 15:59 05/26/20 15:59 05/26/20 15:59 - Notes Notes: GENERAL: Well-developed well-nourished female approximately stated age appearing in no acute distress. SKIN: Good turgor no rashes. HEAD: Normocephalic atraumatic. EYES: MODERATELY PHOTOPHOBIC. PERRLA. EOMI. Conjunctivae and sclerae clear. Visual acuity left eye is grossly intact with patient able to appropriately coun t fingers and visual paredes are normal to confrontation. EARS: CANALS AND TMS CLEAR. NOSE: CLEAR. MOUTH: Moist mucosa. Good dentition. No stridor or edema. No drooling. NECK: Supple. No masses or thyromegaly. No adenopathy. Carotids 2+ without bruits. No JVD. BACK: Symmetrical without tenderness. CHEST: Respirations unlabored. Breath sounds clear and symmetrical. HEART: Regular rhythm. No murmur gallop or rub. ABDOMEN: Soft nontender without masses, organomegaly or rebound. Bowel sounds normally active. No bruits. GENITALIA: Deferred. EXTREMITIES: No edema. No calf tenderness. Cap refill less than 1.5 seconds. Dorsalis pedis and posterior tibial pulses 3+ and symmetrical. NEUROLOGICAL: GCS 15. Alert and oriented x3. Normal gait. Fluent speech. Cranial nerves II through XII intact. Sensorimotor and cerebellar normal. Normal tone. PSYCHIATRIC: Appropriate affect. Course - Re-evaluation Re-evalutation: 05/26/20 17:30 Findings appear consistent with complex migraine. Will treat with IV normal saline, IV Compazine and IV Benadryl. 05/26/20 19:[address] Lab studies were all normal. Symptoms totally resolved after she received 1 L of normal saline IV doses of Compazine and Benadryl. Findings are consistent with a resolved complex migraine headache. I will refer the patient back to her primary care physician and suggest she take ibuprofen if she has any recurrence of pain. Return here as needed. Also will provide neurology referral. 05/26/20 20:00 Findings, clinical impression and plan of treatment have been discussed with patient/family. Understanding of current findings and recommendations has been acknowledged by them and there is agreement regarding disposition and follow-up. - Vital Signs Vital signs: Temp Pulse Resp BP Pulse Ox 97.8 F 61 18 112/72 98 05/26/20 15:59 05/26/20 17:25 05/26/20 17:25 05/26/20 17:25 05/26/20 17:25 - Laboratory Result Diagrams: 05/26/20 18:10 05/26/20 18:10 Laboratory results interpreted by me: 05/26/20 18:10 Alkaline Phosphatase 35 L - Diagnostic Test Radiology reviewed: Reports reviewed - Per radiologist: Normal noncontrast head CT. Normal portable chest x-ray. Discharge - Discharge Clinical Impression: Complex migraine Condition: Stable Disposition: HOME, SELF-CARE Additional Instructions: Migraine Headache The physician feels that your symptoms are due to a migraine attack. Migraines are caused by changes in the blood vessels of the head. Arteries go into spasm, often causing warning symptoms that a headache may begin soon. As the spasm goes away, the vessels dilate and throb, causing the pounding pain of a migraine headache. Migraines often cause nausea and vomiting. The treatment of headaches varies with severity and cause of pain. Not all headaches need pain shots -- in fact, there is evidence that using narcotics for headaches may make them worse in the long run. The physician will determine the therapy that's in your best interest for this particular headache. Medications are available that may prevent migraines, or stop them as they first occur. If one medication is not helpful, try another. If migraines are frequent, be patient -- follow the doctor's recommendations. Call the physician if you are worsening, or if new symptoms arise. Follow-up with primary care physician and neurology. Return here as needed for new or worsening symptoms. Forms: Return to Work Referrals: [facility] [Provider Group] - Follow up as needed NEUROLOGY [Provider Group] - Follow up as needed
--- NOTE | 2020-05-26 17:38 | EKG REPORT ---
SEVERITY:- NORMAL ECG - SINUS RHYTHM : Confirmed by: Otilia Sutherland MD 26-May-2020 17:37:13
[2020-05-26 18:25] LABS: INTERNATIONAL RATION (INR) 0.99; PARTIAL THROMBOPLASTIN TIME 24.6 SEC (23.5-35.8); PROTHROMBIN TIME 13.3 SEC (11.4-15.4)
[2020-05-26 18:31] LABS: ABSOLUTE EOSINOPHILS # (AUTO) 0.1 10^3/uL (0.0-0.6); ABSOLUTE LYMPHOCYTES (AUTO) 1.8 10^3/uL (0.5-4.7); ABSOLUTE MONOCYTES (AUTO) 0.4 10^3/uL (0.1-1.4); ABSOLUTE NEUT (AUTO) 3.9 10^3/uL (1.7-8.2); BASOPHILS % (AUTO) 0.4 % (0-2); EOSINOPHILS % (AUTO) 1.4 % (0-6); HEMATOCRIT 36.5 % (36.0-47.0); MEAN CORPUSCULAR HEMOGLOBIN 31.9 pg (27.0-33.4); MEAN CORPUSCULAR HGB CONC 35.5 g/dL (32.0-36.0); MEAN CORPUSCULAR VOLUME 90 fl (80-97); MONOCYTES % (AUTO) 6.7 % (3-13); PLATELET COUNT 228 10^3/uL (150-450); RED BLOOD COUNT 4.06 10^6/uL (3.72-5.28); RED CELL DISTRIBUTION WIDTH 12.8 % (11.5-14.0); SEGMENTED NEUTROPHILS % (AUTO) 62.5 % (42-78); TOTAL CELLS COUNTED % (AUTO) 100 %; WHITE BLOOD COUNT 6.3 10^3/uL (4.0-10.5)
[2020-05-26 18:41] LABS: ALBUMIN 3.9 g/dL (3.5-5.0); ALKALINE PHOSPHATASE 35 U/L (38-126); ANION GAP 8 (5-19); ASPARTATE AMINO TRANSFERASE 18 U/L (14-36); BILIRUBIN,DIRECT 0.2 mg/dL (0.0-0.4); BILIRUBIN,TOTAL 0.3 mg/dL (0.2-1.3); BLOOD UREA NITROGEN 16 mg/dL (7-20); CALCIUM 9.5 mg/dL (8.4-10.2); CARBON DIOXIDE 26 mmol/L (22-30); CHLORIDE 106 mmol/L (98-107); CREATINE KINASE 52 U/L (30-135); GLUCOSE 88 mg/dL (75-110); POTASSIUM 4.2 mmol/L (3.6-5.0); TOTAL PROTEIN 6.9 g/dL (6.3-8.2)
[2020-05-26 18:53] LABS: CREATINE KINASE MB 0.43 ng/mL (<4.55)
[2020-05-26 18:54] LABS: TROPONIN I < 0.012 ng/mL
[2020-05-26 21:18] VITALS: BP 99/53
== END 2020-05-26 21:22 | disposition home or self-care (01) ==
LOC: ER 15:53
DX: G43.109 Migraine with aura, not intractable, without status migrainosus (principal); R11.0 Nausea; H53.9 Unspecified visual disturbance; Z86.14 Personal history of Methicillin resistant Staphylococcus aureus infection; Z98.51 Tubal ligation status
CPT/HCPCS: 93005; 99285; 96361; 96374; 96375; 36415; 82553; 82550; 85025; 85610; 85730; 80053; 84484; 71045; 70450; 93010; J1200; J0780; J7030